=== PATIENT | female | born 1955 | race Caucasian/White ===

== ENCOUNTER 2022-02-13 07:19 | Outpatient (CLI) | payer MEDICARE, OTHER, SELFPAY ==
--- NOTE | ~2022-02-13 | PE_ITS ---
EXAMINATION: PET skull to mid thigh DATE: 02/13/2022 09:51 INDICATION: Solitary pulmonary nodule TECHNIQUE: Blood glucose level was 114 mg/dL. 10.502 mCi of 18-fluorodeoxyglucose (18-FDG) was admini stered i.v. Low dose computed tomography (CT) images were acquired from the base of the brain to the proximal thighs for attenuation correction and anatomic localization. Positron emission tomography (P ET) images were acquired in the same distribution beginning 63 minutes after injection. The dose-roxanne th product (DLP) was 346.79 mGy-cm. COMPARISON: None FINDINGS: Head/neck: No abnormal FDG uptake is identified. Chest: There is moderate emphysema. A 7 mm nodule is present in the left lung apex which does not dem onstrate associated FDG uptake. There are areas of scarring in the right upper lobe without abnormal FDG uptake. There is mild dependent atelectasis. No pleural effusion or pneumothorax. No pathological ly enlarged thoracic lymph nodes are identified. The heart size is normal. Calcified coronary artery atherosclerosis is noted. Abdomen/pelvis/proximal thighs: No abnormal FDG uptake is identified. Physiologic FDG activity is pre sent in the bowel and urinary tract. The liver, spleen, pancreas, gallbladder, and adrenal glands are normal. Nonobstructing stones of the left kidney measure up to 6 mm. The right kidney is unremarkabl e. No pathologically enlarged abdominal or pelvic lymph nodes are identified. There is no free intrap eritoneal gas or evidence of bowel obstruction. There is calcified atherosclerosis of the aorta and m any of the other arteries. Musculoskeletal: No abnormal FDG uptake is identified. IMPRESSION: 1. 7 mm nodule in the left lung apex without definite FDG uptake. Finding could be benign or reflect small malignancy below the threshold of FDG detection due to its size. Follow-up CT in six months is recommended. 2. Moderate emphysema. Reviewed, dictated and finalized at location A.
[2022-02-13 08:00] LABS: Glucose Point of Care 114 mg/dl (65-105)
== END 2022-02-13 07:20 | disposition home or self-care (01) ==
PROVIDERS: PCP Internal Medicine; Visit Provider Internal Medicine
DX: R91.1 Solitary pulmonary nodule (principal); J43.9 Emphysema, unspecified
CPT/HCPCS: 78815; A9552

== ENCOUNTER 2025-03-03 11:06 | Emergency (ER) | payer MEDICARE, OTHER, SELFPAY ==
[2025-03-03 11:13] VITALS: BP 140/68; PULSE 79; RESP 20; TEMP 36.6; O2SAT 100
--- OUTSIDE RECORDS SUMMARY | 2025-03-03 11:33 | XMS_ITS | Clinical Summary ---
Author Organization [facility] Address [address] [place] [id number] Care Team Providers Care Blend Plant Operator Name Role Phone Nayan Hyatt MD Primary Care Provider Allergies No known active allergies Medications albuterol HFA (PROVENTIL HFA,VENTOLIN HFA,PROAIR HFA) 90 mcg/actuation inhaler INHALE 2 PUFF(S) EVERY 4 HOURS BY MOUTH NEEDED 02/28/2020 Active atorvastatin (LIPITOR) 20 mg tablet Take 20 mg by mouth daily 02/28/2020 Active Advair Diskus 250-50 mcg/dose diskus inhaler INL 1 PUFF PO BID 04/14/2020 Active busPIRone (BUSPAR) 5 mg tablet 07/09/2020 Active magnesium oxide 400 mg magnesium capsule daily Active montelukast (SINGULAIR) 10 mg tablet 07/09/2020 Active nystatin 100,000 unit/mL suspension SHAKE LIQUID AND TAKE 5 ML BY MOUTH FOUR TIMES DAILY FOR ACUTE OPIOID THERAPY DAYS DIRECTED 06/12/2020 Active Active Problems Problem Noted Date Diagnosed Date Idiopathic peripheral neuropathy 07/10/2020 Assessment & Plan (07/10/2020 1:41 PM AQUACULTURE FARM MANAGER): Patient has undergone neurophysiologic assessment which on personal review of testing demonstrates a a peripheral neuropathy. Laboratory assessment is unrevealing leaving an idiopathic basis for her peripheral neuropathy findings. As she is not having any neuropathic pain at this time, medical intervention is not beneficial for symptomatic relief. 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 As her symptoms at this point are not severe and assistive gait device such as a cane would not be necessary. If her symptoms would worsen, assistive gait device such as a cane would be my recommendation. I will see her back in the office on an as-needed basis. Assessment & Plan (05/01/2020 11:55 AM AQUACULTURE FARM MANAGER): Patient describes a several month history of fluctuant gait unsteadiness associated with numbness in her feet and legs suspect for sensory ataxia clinically secondary to peripheral neuropathy. I will obtain neurophysiologic testing to assess for the possibility of peripheral neuropathy as well as obtain lab work looking for any medically addressed because of neuropathy. I will plan on seeing her back thereafter. Dizziness and giddiness 05/01/2020 Assessment & Plan (05/01/2020 11:56 AM AQUACULTURE FARM MANAGER): Patient has a several month history of gait instability. Her clinical examination would suggest sensory ataxia from peripheral neuropathy. 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 She has had some tinnitus in her left ear a although again acknowledges that this is not been changed over the last 30-40 years I will pursue an evaluation looking into potential peripheral neuropathy with secondary sensory ataxia. I will see her back thereafter. Surgical History Surgery Date Site/Laterality Comments HYSTERECTOMY APPENDECTOMY Medical History Medical History Date Comments High cholesterol Depression Family History Medical History Relation Name Comments AIDS Brother 1 Cancer Brother 2 No Known Problems Brother 3 Diabetes Brother 4 Diabetes Brother 5 Cancer Father Diabetes Father Breast cancer Mother No Known Problems Sister 1 Heart attack Sister 2 No Known Problems Sister 3 Relation Name Status Comments Brother 1 Brother 2 Brother 3 Brother 4 Alive Brother 5 Alive Father Mother Sister 1 Sister 2 Sister 3 Social History Tobacco Use Types Packs/Day Years Used Date Smoking Tobacco: Every Day Smokeless Tobacco: Never Personal Safety Answer Date Recorded Getting School Help Needed Not on file 09/11 Comments Unknown Sex and Gender Information Value Date Recorded Sex Assigned at Not on file Legal Sex Female 11:50 AM AQUACULTURE FARM MANAGER Gender Identity Not on file Sexual Orientation Not on file Obstetrics History Last Filed Vital Signs Vital Sign Reading Time Taken Comments Blood Pressure 100/64 07/10/2020 1:08 PM AQUACULTURE FARM MANAGER Pulse 95 07/10/2020 1:08 PM AQUACULTURE FARM MANAGER Temperature 36.5 C (97.7 F) 07/10/2020 1:08 PM AQUACULTURE FARM MANAGER Respiratory Rate - - Oxygen Saturation - - Inhaled Oxygen Concentration - - Weight 63.2 kg (139 lb 6.4 oz) 07/10/2020 1:08 P M AQUACULTURE FARM MANAGER Height 172.7 cm (5' 8) 07/10/2020 1:08 PM AQUACULTURE FARM MANAGER Body Mass Index 21.2 07/10/2020 1:08 PM AQUACULTURE FARM MANAGER Plan of Treatment Not on file Insurance [facility] MEDICARE [facility] Social Pulse Care Teams Blend Plant Operator Relationship Specialty Start Date End Date Nayan Hyatt MD PCP - General 08/18/19
--- OUTSIDE RECORDS SUMMARY | 2025-03-03 11:53 | XMS_ITS | Clinical Summary ---
Author Organization [facility] Address [address] [place] [id number] Care Team Providers Care Virologist Name Role Phone Nayan Hyatt MD Primary [...] 07/10/2020 Assessment & Plan (07/10/2020 1:41 PM WORK STATION SUPPORT SPECIALIST): Patient has undergone neurophysiologic assessment which on personal review of testing demonstrates a a peripheral neuropathy. Laboratory assessment is unrevealing leaving an idiopathic basis for her peripheral neuropathy findings. As she is not having any neuropathic pain at this time, medical intervention is not beneficial for symptomatic relief. Sensory ataxia 05/01/2020 Assessment & Plan (07/10/2020 1:41 PM WORK STATION SUPPORT SPECIALIST): Patient exhibits sensory ataxia as a secondary [...] basis. Assessment & Plan (05/01/2020 11:55 AM WORK STATION SUPPORT SPECIALIST): Patient describes a several month history of [...] 05/01/2020 Assessment & Plan (05/01/2020 11:56 AM WORK STATION SUPPORT SPECIALIST): Patient has a several month history of [...] on file Legal Sex Female 11:50 AM WORK STATION SUPPORT SPECIALIST Gender Identity Not on file Sexual Orientation Not on file Obstetrics History Last Filed Vital Signs Vital Sign Reading Time Taken Comments Blood Pressure 100/64 07/10/2020 1:08 PM WORK STATION SUPPORT SPECIALIST Pulse 95 07/10/2020 1:08 PM WORK STATION SUPPORT SPECIALIST Temperature 36.5 C (97.7 F) 07/10/2020 1:08 PM WORK STATION SUPPORT SPECIALIST Respiratory Rate - - Oxygen Saturation - - Inhaled Oxygen Concentration - - Weight 63.2 kg (139 lb 6.4 oz) 07/10/2020 1:08 P M WORK STATION SUPPORT SPECIALIST Height 172.7 cm (5' 8) 07/10/2020 1:08 PM WORK STATION SUPPORT SPECIALIST Body Mass Index 21.2 07/10/2020 1:08 PM WORK STATION SUPPORT SPECIALIST Plan of Treatment Not on file Insurance [facility] MEDICARE [facility] Cardiostrong Care Teams Virologist Relationship Specialty Start Date End Date Nayan Hyatt MD PCP - General 08/18/19
--- NOTE | 2025-03-03 12:20 | ED_ITS ---
HPI - Skin/Abscess/Foreign Bdy General Chief complaint: Skin/Abscess/Foreign Body <Jey Mccrary APRN - Last Filed: 03/03/25 12:42> Stated complaint: insect bite on arm and face <Jey Mccrary APRN - Last Filed: 03/03/25 12:42> Time Seen by Provider: 03/03/25 11:24 <Jey Mccrary APRN - Last Filed: 03/03/25 12:42> Source: patient and RN notes reviewed <Jey Mccrary APRN - Last Filed: 03/03/25 12:42> Mode of arrival: ambulatory <Jey Mccrary APRN - Last Filed: 03/03/25 12:42> Limitations: no limitations <Jey Mccrary APRN - Last Filed: 03/03/25 12:42> History of Present Illness HPI narrative: 69-year-old female presents [facility] complaining of insect bites on her right arm and face. Patient said she believes she was bit by something 2 days ago. Since then she has noticed increased redness, swelling, pain to her right lower arm and noticed streaking up into her right upper arm. Patient reports some redness and swelling to the right side of her face near her cheek. Patient denies any vision changes, eye pain, pain with eye movement of MR any pain on her face. Patient was recently admitted to [facility] [place] month ago for cellulitis of her right hand was given IV antibiotics and discharge. Patient denies any history of MRSA or any diabetes or any significant past medical problems. <Jey Mccrary APRN - Last Filed: 03/03/25 12:42> Related Data Allergies/Adverse reactions: Allergies Allergy/AdvReac Type Severity Reaction Status Date / Time No Known Allergies Allergy Unverified 04/28/12 12:42 <Jey Mccrary APRN - Last Filed: 03/03/25 12:42> Review of Systems 2 Review of Systems: CONSTITUTIONAL: Denies fever, chills, or sweats. EYES: Denies visual changes, redness, or discharge. ENT: Denies rhinorrhea, congestion, sore throat, or otalgia. CARDIOVASCULAR: Denies chest pain, palpitations, or edema. RESPIRATORY: Denies cough or dyspnea. GASTROINTESTINAL: Denies abdominal pain, nausea, vomiting, or diarrhea. GENITOURINARY: Denies dysuria or hematuria. SKIN: Denies rash or itching. Positive for wound. MUSCULOSKELETAL: Denies back pain, joint pain, or myalgia. NEUROLOGIC: Denies headache, numbness, or weakness. PSYCHIATRIC: Denies anxiety or depression. All other systems reviewed are negative, except as documented in HPI. <Jey Mccrary APRN - Last Filed: 03/03/25 12:42> PMFSH Comments At the time of my signature, I reviewed and agree with the nursing past medical, surgical, social, and family history. There is no relevant family history pertinent to the patient complaint. <Jey Mccrary APRN - Last Filed: 03/03/25 12:42> Exam 2 Narrative: GENERAL: This is a well-nourished, well-developed adult, in no apparent distress. They are non ill-appearing, nontoxic appearing. HEAD: normocephalic, atraumatic. EYES: Sclera clear/white. Conjunctiva normal. Vision is grossly intact. Extraocular movements intact. Pupils PERRLA EARS: External ears normal, Hearing grossly intact. NOSE: External nose normal . THROAT: Mucous membranes moist, NECK: Neck supple, CARDIOVASCULAR: Regular rate and rhythm RESPIRATORY: Respiratory rate normal, respiratory effort nonlabored, no respiratory distress SKIN: Right arm: 2 puncture wounds present to the right lower arm. Right lower arm is erythematous with red streaking up into the right upper arm. It is tender to palpate. No exudate, no area of fluctuance. It is hot to touch. Mild induration. Neurovascular status intact distal to right arm. Right maxillary/face: Puncture wound present to the right maxilla. It is erythematous, nontender to palpate not warm to touch. Redness and swelling borders the inferior periorbital space. No area of fluctuance, no induration, no exam NEURO: awake, alert, and oriented to person, place and time. There were no obvious focal neurologic abnormalities. EXTREMITIES: No joint tenderness, effusion, or edema noted. <Jey Mccrary APRN - Last Filed: 03/03/25 12:42> Course Course Emergency Course: Portions of this record may have been created with voice recognition software <Jey Mccrary APRN - Last Filed: 03/03/25 12:42> SPECIAL DISTRIBUTION CLERK/PA Physician Supervision [facility] discuss this patient with me. I evaluate patient at bedside the area in question of her face is localized without extension into orbits. The area on her forearm does appear cellulitic in nature. It does appear somewhat well-demarcated and amenable for marking skin pen. Discussed that because patient is otherwise healthy, reasonable to trial outpatient antibiotic therapy 1st but basic labs were obtained her baseline values. <Anna King MD - Last Filed: 03/03/25 19:27> Vital Signs Vital signs: Vital Signs Temperature 97.9 F 03/03/25 11:13 Pulse Rate 79 03/03/25 11:13 Respiratory Rate 20 03/03/25 11:13 Blood Pressure 140/68 03/03/25 11:13 Pulse Oximetry 100 03/03/25 11:13 Oxygen Delivery Room Air 03/03/25 11:13 Temperature 97.9 F 03/03/25 11:13 Pulse Rate 80 03/03/25 14:24 Respiratory Rate 16 03/03/25 14:24 Blood Pressure 132/76 03/03/25 14:24 Pulse Oximetry 98 03/03/25 14:24 Oxygen Delivery Room Air 03/03/25 11:13 Reviewed <Jey Mccrary APRN - Last Filed: 03/03/25 12:42> Vital Signs Temperature 97.9 F 03/03/25 11:13 Pulse Rate 79 03/03/25 11:13 Respiratory Rate 20 03/03/25 11:13 Blood Pressure 140/68 03/03/25 11:13 Pulse Oximetry 100 03/03/25 11:13 Oxygen Delivery Room Air 03/03/25 11:13 Temperature 97.9 F 03/03/25 11:13 Pulse Rate 80 03/03/25 14:24 Respiratory Rate 16 03/03/25 14:24 Blood Pressure 132/76 03/03/25 14:24 Pulse Oximetry 98 03/03/25 14:24 Oxygen Delivery Room Air 03/03/25 11:13 <Anna King MD - Last Filed: 03/03/25 19:27> MDM - Skin/Abscess/Foreign Bdy MDM Narrative Medical decision making narrative: Patient likely has cellulitis of her right arm. Neurovascular status intact to her right arm. Likely patient has local inflammation to a bug bite on her right face. Low suspicion for periorbital cellulitis. Rash on face is nontender not hot to touch. Will obtain lab work. Will send patient home on cephalexin. Patient denies any MRSA history or significant past medical history. Discussed physical exam findings. Advised supportive measures and signs/symptoms to go to the ER. Pt is appropriate for outpt treatment and f/u. < Jey Mccrary APRN - Last Filed: 03/03/25 12:42> Differential Diagnosis Differential diagnosis: Likely cellulitis, insect bites and contact dermatitis <Jey Mccrary APRN - Last Filed: 03/03/25 12:42> Lab Data Result diagrams: 03/03/25 12:41 03/03/25 12:41 <Jey Mccrary APRN - Last Filed: 03/03/25 12:42> Labs: Lab Results 03/03/25 Range/Units 12:41 WBC 8.9 (4.5-10.0) K/mm3 RBC 4.66 (4.2-5.4) M/mm3 Hgb 14.4 (12.0-15.0) g/dL Hct 44.4 (37.0-47.0) % MCV 95.3 (80-100) fl MCH 30.9 (26-34) pg MCHC 32.4 (32-36) g/dl RDW 12.9 (11.5-14.5) % Plt Count 279 (150-375) k/mm3 MPV 10.0 (7.4-10.4) fl Immature Gran % (Auto) 0.4 (0-0.5) % Neut % (Auto) 58.2 (45.5-73.1) % Lymph % (Auto) 31.3 (18.3-44.2) % Adams % (Auto) 7.1 (2.6-8.5) % Eos % (Auto) 2.4 (0-4.4) % Baso % (Auto) 0.6 (0.2-1.2) % Lymph # (Auto) 2.79 (0.9-3.2) K/mm3 Adams # (Auto) 0.6 (0.1-0.6) K/mm3 Eos # (Auto) 0.2 (0-0.3) K/mm3 Baso # (Auto) 0.1 (0.0-0.1) K/mm3 Abs Immat Gran (auto) 0.04 H (0.00-0.031) K/mm3 Absolute Neuts (auto) 5.2 (1.3-6.7) K/mm3 Absolute Nucleated RBC 0.000 (0.0-0.012) K/mm3 Nucleated RBC % 0.0 (0.0-0.2) % Sodium 138 (137-145) mmol/L Potassium 3.8 (3.4-5.0) mmol/L Chloride 102 (98-107) mmol/L Carbon Dioxide 27 (22-30) mmol/L Anion Gap 9 (4-12) mmol/L BUN 9 (7-17) mg/dL Creatinine 0.74 (0.7-1.0) mg/dL Estim Creat Clear Calc 61 ml/min Estimated GFR > 60 (59 - ) Glucose 92 (65-110) mg/dL Calcium 9.5 (8.4-10.2) mg/dL Total Bilirubin 0.5 (0.2-1.3) mg/dL AST 27 (14-36) U/L ALT 18 (6-35) U/L Alkaline Phosphatase 93 (38-126) U/L C-Reactive Protein 1.1 (<1.0) mg/dL Total Protein 8.1 (6.3-8.2) g/dL Albumin 4.9 (3.5-5.1) g/dL <Jey Mccrary, PENSIONHOLDER INFORMATION CLERK - Last Filed: 03/03/25 12:42> Lab Results 03/03/25 Range/Units 12:41 WBC 8.9 (4.5-10.0) K/mm3 RBC 4.66 (4.2-5.4) M/mm3 Hgb 14.4 (12.0-15.0) g/dL Hct 44.4 (37.0-47.0) % MCV 95.3 (80-100) fl MCH 30.9 (26-34) pg MCHC 32.4 (32-36) g/dl RDW 12.9 (11.5-14.5) % Plt Count 279 (150-375) k/mm3 MPV 10.0 (7.4-10.4) fl Immature Gran % (Auto) 0.4 (0-0.5) % Neut % (Auto) 58.2 (45.5-73.1) % Lymph % (Auto) 31.3 (18.3-44.2) % Adams % (Auto) 7.1 (2.6-8.5) % Eos % (Auto) 2.4 (0-4.4) % Baso % (Auto) 0.6 (0.2-1.2) % Lymph # (Auto) 2.79 (0.9-3.2) K/mm3 Adams # (Auto) 0.6 (0.1-0.6) K/mm3 Eos # (Auto) 0.2 (0-0.3) K/mm3 Baso # (Auto) 0.1 (0.0-0.1) K/mm3 Abs Immat Gran (auto) 0.04 H (0.00-0.031) K/mm3 Absolute Neuts (auto) 5.2 (1.3-6.7) K/mm3 Absolute Nucleated RBC 0.000 (0.0-0.012) K/mm3 Nucleated RBC % 0.0 (0.0-0.2) % Sodium 138 (137-145) mmol/L Potassium 3.8 (3.4-5.0) mmol/L Chloride 102 (98-107) mmol/L Carbon Dioxide 27 (22-30) mmol/L Anion Gap 9 (4-12) mmol/L BUN 9 (7-17) mg/dL Creatinine 0.74 (0.7-1.0) mg/dL Estim Creat Clear Calc 61 ml/min Estimated GFR > 60 (59 - ) Glucose 92 (65-110) mg/dL Calcium 9.5 (8.4-10.2) mg/dL Total Bilirubin 0.5 (0.2-1.3) mg/dL AST 27 (14-36) U/L ALT 18 (6-35) U/L Alkaline Phosphatase 93 (38-126) U/L C-Reactive Protein 1.1 (<1.0) mg/dL Total Protein 8.1 (6.3-8.2) g/dL Albumin 4.9 (3.5-5.1) g/dL <Anna King MD - Last Filed: 03/03/25 19:27> Critical Care Time Critical Care Time Critical Care Time: No <Jey Mccrary APRN - Last Filed: 03/03/25 12:42> Discharge Plan Discharge Clinical Impression: Cellulitis Qualifiers: Site of cellulitis: extremity Site of cellulitis of extremity: lower extremity Laterality: right Qualified Code(s): L03.115 - Cellulitis of right lower limb <Jey Mccrary APRN - Last Filed: 03/03/25 12:42> Patient Disposition: Home <Jey Mccrary APRN - Last Filed: 03/03/25 12:42> Condition: Stable <Jey Mccrary APRN - Last Filed: 03/03/25 12:42> Instructions: Antibiotic Form, Cellulitis (ED) <Jey Mccrary APRN - Last Filed: 03/03/25 12:42> Additional Instructions: Your lab works is unremarkable. Wash the wound daily with mild soap and water. Do not soak or scrub the wound. Avoid dirty water to the wounds healed completely. Avoid picking or scratch that the wounds as this may increase the risk of a worsening infection. You may take ibuprofen 600 mg to 800 mg every 6-8 hours. Do not exceed more than 800 mg of ibuprofen per dose. Do not exceed more than 3200 mg ibuprofen in a day. You may take up to 1000 mg Tylenol every 6-8 hours. Do not exceed 1000 mg per dose, do exceed more than 4000 mg of Tylenol in a day. Take antibiotic until it's gone. Follow-up PCP in 3-5 days. If he developed worsening redness, swelling, pain, fevers, drainage, eye pain, vision problems, or any serious concerns please return to the ER immediately. <Jey Mccrary APRN - Last Filed: 03/03/25 12:42> Patient Language: Belarusian <Jey Mccrary APRN - Last Filed: 03/03/25 12:42> Prescriptions: New cephalexin 500 mg capsule 500 mg PO Q6H 7 Days Qty: 28 0RF <Jey Mccrary APRN - Last Filed: 03/03/25 12:42> Follow-up/Referrals: Hyatt,MD Nayan [Primary Care Provider] <Jey Mccrary APRN - Last Filed: 03/03/25 12:42> Time of Disposition: 13:59 <Jey Mccrary APRN - Last Filed: 03/03/25 12:42> 13:59 <Anna King MD - Last Filed: 03/03/25 19:27>
[2025-03-03 13:01] LABS: Hematocrit 44.4 % (37.0-47.0); Hemoglobin 14.4 g/dL (12.0-15.0); Immature Granulocyte Percent A 0.4 % (0-0.5); Lymphocytes Absolute Auto 2.79 K/mm3 (0.9-3.2); Mean Corpuscular HGB Conc 32.4 g/dl (32-36); Mean Corpuscular Hemoglobin 30.9 pg (26-34); Mean Corpuscular Volume 95.3 fl (80-100); Nucleated Red Blood Cells Absolute Auto 0.000 K/mm3 (0.0-0.012); Nucleated Red Blood Cells Perc 0.0 % (0.0-0.2); Platelet Count Result 279 k/mm3 (150-375); Red Blood Count 4.66 M/mm3 (4.2-5.4); White Blood Count 8.9 K/mm3 (4.5-10.0)
[2025-03-03 13:21] LABS: Alanine Aminotransferase 18 U/L (6-35); Albumin Level 4.9 g/dL (3.5-5.1); Alkaline Phosphatase 93 U/L (38-126); Anion Gap 9 mmol/L (4-12); Aspartate Amino Transferase 27 U/L (14-36); Bilirubin,Total 0.5 mg/dL (0.2-1.3); Blood Urea Nitrogen 9 mg/dL (7-17); Calcium 9.5 mg/dL (8.4-10.2); Carbon Dioxide 27 mmol/L (22-30); Chloride 102 mmol/L (98-107); Estimated CRCL calculation 61 ml/min; Estimated Glomerular Filt Rate > 60; Glucose 92 mg/dL (65-110); Potassium 3.8 mmol/L (3.4-5.0); Sodium 138 mmol/L (137-145); Total Protein 8.1 g/dL (6.3-8.2)
[2025-03-03 13:23] LABS: CRP 1.1 mg/dL (<1.0)
[2025-03-03 14:24] VITALS: BP 132/76; PULSE 80; RESP 16; O2SAT 98
== END 2025-03-03 14:25 | disposition home or self-care (01) ==
PROVIDERS: PCP Internal Medicine
DX: L03.115 Cellulitis of right lower limb (principal)
CPT/HCPCS: 36415; 80053; 85025; 86140; 99283